=== PATIENT | male | born 1950 | race Caucasian/White ===

== ENCOUNTER → 2016-06-28 | Outpatient (CLI) | payer MEDICARE ==
--- NOTE | 2016-06-28 12:50 | Diagnostic Imaging Report ---
Ultrasound right upper extremity. INDICATION: Right shoulder mass. REPORT: The patient has a palpable abnormality in the region of the acromioclavicular joint. On this study, there is a well-circumscribed 2.7 x 1.1 x 2.3 cm avascular hypoechoic lesion with good through transmission. This does have the appearance of a cyst. This is in close proximity to the acromioclavicular joint but I am not certain that this communicates with the joint. If further imaging is desired, then MRI would be recommended. No other abnormality is identified. IMPRESSION: The palpable abnormality along the superior margin of the acromioclavicular joint appears to represent a cyst. Whether this communicates with the acromioclavicular joint itself, however, is not certain. Recommendations as above. Dictated by: Dictated on workstation # [id number]
== END ==
LOC: RAD 10:08
PROVIDERS: ATTEND Internal Medicine
DX: R22.31 Localized swelling, mass and lump, right upper limb (principal)
CPT/HCPCS: 76881

== ENCOUNTER → 2017-10-18 | Outpatient (CLI) | payer MEDICARE ==
--- NOTE | 2017-10-18 11:00 | Diagnostic Imaging Report ---
PROCEDURE: US left lower extremity venous. TECHNIQUE: Multiple real-time grayscale images were obtained over the left lower extremity in various projections. Additional duplex Doppler and color Doppler images were also obtained. INDICATION: Left lower extremity swelling. There is no evidence of a left lower extremity DVT. The left lower extremity deep venous system demonstrates normal compressibility with normal response to augmentation Valsalva. No fluid collection or mass is seen. IMPRESSION: No evidence of left lower extremity DVT. Dictated by: Dictated on workstation # [id number]
== END ==
LOC: RAD 09:31
PROVIDERS: ATTEND Internal Medicine
DX: M79.89 Other specified soft tissue disorders (principal)

== ENCOUNTER → 2018-04-08 | Outpatient (CLI) | payer MEDICARE ==
[2018-04-08 14:05] LABS: ABSOLUTE RETIC # 61 10e9/L (24-90); BASOPHILS % (AUTO) 0 % (0-10); EOSINOPHILS # (AUTO) 0.1 10^3/uL (0.0-0.3); EOSINOPHILS % (AUTO) 1 % (0-10); HEMATOCRIT 50 % (40-54); HEMOGLOBIN 16.6 G/DL (13.3-17.7); LYMPHOCYTES # (AUTO) 1.6 X 10^3 (1.0-4.0); LYMPHOCYTES % (AUTO) 25 % (12-44); MEAN CORPUSCULAR HEMOGLOBIN 30 PG (25-34); MEAN CORPUSCULAR HGB CONC 33 G/DL (32-36); MEAN CORPUSCULAR VOLUME 89 FL (80-99); MEAN PLATELET VOLUME 10.7 FL (7.4-10.4); MONOCYTES # (AUTO) 0.4 X 10^3 (0.0-1.0); MONOCYTES % (AUTO) 7 % (0-12); NEUTROPHILS # (AUTO) 4.4 X 10^3 (1.8-7.8); NEUTROPHILS % (AUTO) 67 % (42-75); PLATELET COUNT 110 10^3/uL (130-400); RED BLOOD COUNT 5.56 10^6/uL (4.35-5.85); RETICULOCYTE % 1.09 % (0.50-2.40); WHITE BLOOD COUNT 6.5 10^3/uL (4.3-11.0)
[2018-04-08 14:27] LABS: BAND NEUTROPHILS 2 %; BASOPHILS % (MANUAL) 0 %; EOSINOPHILS % (MANUAL) 1 %; LYMPHOCYTES % (MANUAL) 25 %; MONOCYTES % (MANUAL) 8 %; NEUTROPHILS % (MANUAL) 64 %; RBC MORPH NORMAL
== END ==
LOC: LAB 13:50
PROVIDERS: ATTEND Internal Medicine
DX: D69.6 Thrombocytopenia, unspecified (principal)
CPT/HCPCS: 36415; 85007; 85027; 85045

== ENCOUNTER → 2020-01-22 | Outpatient (CLI) | payer MEDICARE, OTHER ==
--- NOTE | 2020-01-22 19:26 | Diagnostic Imaging Report ---
EXAMINATION: Magnetic resonance imaging of the right shoulder without contrast. DATE: January 22, 2020. COMPARISON: None. HISTORY: 69-year-old male, palpable abnormality at the level of the superior aspect of the shoulder. TECHNIQUE: Magnetic Resonance Imaging sequences were performed of the shoulder without contrast. FINDINGS: ROTATOR CUFF, LIGAMENTS, TENDONS, AND MUSCLES: There is a full thickness full width tear of the supraspinatus tendon with tendon retraction near the level of the superior humeral head. The infraspinatus and teres minor tendons are intact. There is a small interstitial split tear of the subscapularis tendon. There is mild fatty atrophy of the supraspinatus muscle. LONG HEAD OF BICEPS: The intra-articular segment of the long head of biceps tendon is not present. The tendon is likely torn and retracted in the bicipital groove. GLENOHUMERAL JOINT: The humeral head is superiorly subluxed. The labrum is grossly intact. There is no identified paralabral cyst. The articular cartilage is grossly intact. There is a trace glenohumeral joint effusion. ACROMIOCLAVICULAR JOINT: The acromioclavicular joint is normally aligned. The coracoclavicular and coracoacromial ligaments are intact. There are advanced acromioclavicular degenerative changes. There is a bulbous lateral clavicle projecting below the expected acromioclavicular joint margin by approximately 3 to 4 mm. There is a small acromioclavicular joint effusion. There is a lobulated cystic mass just superior to the acromioclavicular joint in the area of palpable concern measuring approximately 12 x 18 x 20 mm in size. This most likely relates to a geyser and communication of abnormal fluid in the subacromial subdeltoid bursa through the acromioclavicular joint. BONE: The bones all have normal configuration. There is degenerative related marrow edema adjacent to the acromioclavicular joint. There is no acute fracture, bone contusion or evidence of osteonecrosis. BURSAE AND SOFT TISSUES: There is abnormal fluid in the subacromial subdeltoid bursa compatible with the full-thickness rotator cuff tendon tear, bursitis and/or recent injection. IMPRESSION: 1. Full thickness full width tear of the supraspinatus tendon with tendon retraction to the level of the superior humeral head. There is mild fatty atrophy of the supraspinatus muscle. Small interstitial tear of the subscapularis tendon. 2. Advanced acromioclavicular degenerative changes with bulbous lateral clavicle projecting 3 to 4 mm below the expected joint margin. 3. Lobulated cystic mass at the area of focal patient concern which is directly superior to the acromioclavicular joint and most likely reflects a geyser. 4. The humeral head is superiorly subluxed. No discretely identified labral tear. The articular cartilage is grossly intact. Trace glenohumeral joint effusion. 5. The proximal long head of biceps tendon is not present in its intra-articular segment. The tendon is likely torn and retracted in the bicipital groove. 6. No acute fracture, bone contusion or evidence of osteonecrosis. Dictated by: Dictated on workstation # [id number]
== END ==
LOC: RAD 15:30
PROVIDERS: ATTEND Physician Assistant
DX: M75.101 Unspecified rotator cuff tear or rupture of right shoulder, not specified as traumatic (principal); S43.001A Unspecified subluxation of right shoulder joint, initial encounter; M67.813 Other specified disorders of tendon, right shoulder; M19.011 Primary osteoarthritis, right shoulder
CPT/HCPCS: 73221

== ENCOUNTER → 2020-11-10 | Outpatient (CLI) | payer MEDICARE, OTHER ==
[2020-11-10 08:46] LABS: HEMOGLOBIN 16.5 g/dL (13.3-17.7); MEAN PLATELET VOLUME 10.1 fL (9.0-12.2); WHITE BLOOD COUNT 7.7 10^3/uL (4.3-11.0)
[2020-11-10 09:07] LABS: ALANINE AMINOTRANSFERASE 37 U/L (0-55); ALBUMIN 3.9 GM/DL (3.2-4.5); ALKALINE PHOSPHATASE 65 U/L (40-136); BILIRUBIN,TOTAL 0.6 MG/DL (0.1-1.0); BUN/CREATININE RATIO 20; CALCIUM 8.9 MG/DL (8.5-10.1); CARBON DIOXIDE 22 MMOL/L (21-32); CHLORIDE 112 MMOL/L (98-107); CREATININE SERUM 0.94 MG/DL (0.60-1.30); GFR ESTIMATED > 60; GLUCOSE 118 MG/DL (70-105); POTASSIUM 4.5 MMOL/L (3.6-5.0); SODIUM 142 MMOL/L (135-145); TOTAL PROTEIN 6.5 GM/DL (6.4-8.2)
== END ==
LOC: LAB 08:07
PROVIDERS: ATTEND Nurse Practitioner Family
DX: R05 Cough (principal)
CPT/HCPCS: 36415; 80053; 85027; 86738

== ENCOUNTER → 2020-11-10 | Outpatient (CLI) | payer MEDICARE, OTHER | LOC: LABNPT 06:23 | PROVIDERS: ATTEND Internal Medicine | DX: R05 Cough (principal); Z20.822 Contact with and (suspected) exposure to COVID-19 | CPT/HCPCS: 87635 ==

== ENCOUNTER 2021-09-22 20:31 | Outpatient (CLI) | payer MEDICARE, OTHER | END 2021-09-23 06:19 | disposition home or self-care (01) | LOC: SLEEP 20:31 | PROVIDERS: ATTEND Nurse Practitioner | DX: G47.33 Obstructive sleep apnea (adult) (pediatric) (principal) | CPT/HCPCS: 95810 ==

== ENCOUNTER 2021-11-28 15:59 | Outpatient (CLI) | payer MEDICARE, OTHER | END 2021-11-28 16:16 | LOC: SLEEP 15:59 | PROVIDERS: ATTEND Otolaryngology Otolaryngology/Facial Plastic Surgery | DX: G47.33 Obstructive sleep apnea (adult) (pediatric) (principal) | CPT/HCPCS: G0399 ==

== ENCOUNTER → 2022-01-23 | Outpatient (CLI) | payer MEDICARE, OTHER ==
[~2022-01-23] MED LIST: CATHETER FLUSH 10 ML SYR IV PRN; HOLD METFORMIN - RECEIVED CONTRAST 20 ML VIAL IV SCH; IOHEXOL 350 MG/ML 100 ML (OMNIPAQUE 350) VIAL IV ONE; NS 100 ML (IVPB) BAG IV ONE
--- NOTE | 2022-01-23 17:17 | Diagnostic Imaging Report ---
EXAMINATION: CT abdomen and pelvis with intravenous contrast. TECHNIQUE: Multiple contiguous axial images were obtained through the abdomen and pelvis after the uneventful administration of intravenous contrast. All CT scans use one or more of the following dose optimizing techniques: automated exposure control, MA and/or KvP adjustment based on patient size and exam type or iterative reconstruction. HISTORY: Prior superior mesenteric vein thrombosis. COMPARISON: None available. FINDINGS: Limited views of the lower thorax are unremarkable. The liver is normal without focal lesion. There is no biliary ductal dilation. Gallbladder is normal. Pancreas is normal. Spleen is normal. Adrenal glands are normal. The kidneys are normal. There is no hydronephrosis. Urinary bladder is normal. There is an inflamed loop of small bowel in the right lower quadrant with mesenteric stranding. There is mild stranding about the mesenteric venous branch extending to this loop of bowel. There is reduced attenuation of this mesenteric venous branch compared to the adjacent branches suggestive of thrombosis. No free fluid or air. No abdominal or pelvic lymphadenopathy. Aorta is normal in caliber without aneurysm. There are no suspicious osseus lesions. IMPRESSION: 1. Inflamed loop of small bowel with mesenteric stranding. 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 Dictated by: Dictated on workstation # [id number]
== END ==
LOC: RAD 14:21
PROVIDERS: ATTEND Internal Medicine
DX: K55.059 Acute (reversible) ischemia of intestine, part and extent unspecified (principal)
CPT/HCPCS: 74177